=== PATIENT | female | born 1995 | race Caucasian/White ===

== ENCOUNTER 2019-08-28 19:37 | Emergency (ER) | payer BC, SELFPAY ==
[~2019-08-28] VITALS: Ht 170.2 cm; Wt 65.8 kg
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
[2019-08-28] MEDS ORDERED: IBUPROFEN 400 MG TABLET ONE (19:55)
[2019-08-28] MEDS ORDERED: ONDANSETRON 4 MG TAB.RAPDIS ONE (19:55)
[2019-08-28] MEDS ORDERED: HYDROCODONE/APAP 10/325MG 1 EA TABLET ONE (19:55)
--- NOTE | 2019-08-28 19:59 | NUR ---
XRAY AT BEDSIDE
[2019-08-28] MEDS ORDERED: IBUPROFEN 400 MG TABLET PO ONE (20:00)
[2019-08-28] MEDS ORDERED: HYDROCODONE/APAP 10/325MG 1 EA TABLET PO ONE (20:00)
[2019-08-28] MEDS ORDERED: ONDANSETRON 4 MG TAB.RAPDIS SL ONE (20:00)
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
--- NOTE | 2019-08-28 21:05 | NUR ---
Patient discharged to home in stable condition. Written and verbal after care instructions given. Patient verbalizes understanding of instruction and RX. VSS. Pt ambulated with gait.
[2019-08-28 21:08] VITALS: BP 118/82
== END 2019-08-28 21:15 | disposition home or self-care (01) ==
LOC: ER 19:40
DX: S52.571A Other intraarticular fracture of lower end of right radius, initial encounter for closed fracture (principal); Z90.89 Acquired absence of other organs; Z88.1 Allergy status to other antibiotic agents; V00.311A Fall from snowboard, initial encounter; Y93.23 Activity, snow (alpine) (downhill) skiing, snowboarding, sledding, tobogganing and snow tubing; Y92.89 Other specified places as the place of occurrence of the external cause; Y99.8 Other external cause status
CPT/HCPCS: 29125; 73110; 99284; Q0162